=== PATIENT | female | born 1975 | race Caucasian/White ===

== ENCOUNTER 2025-01-14 01:10 | Inpatient (IN) | payer MEDICARE, OTHER ==
[~2025-01-14] VITALS: Ht 157.5 cm; Wt 51.7 kg
[2025-01-14 02:23] LABS: PLATELET COUNT (AUTO) 328 K/uL (150-450); RED BLOOD CELL COUNT(AUTO) 3.73 MIL/uL (4.00-5.20); RED CELL DISTRIBUTION WIDTH 18.4 % (11.5-14.5); WHITE BLOOD COUNT (AUTO) 4.2 K/uL (4.5-11.0)
[2025-01-14 02:35] LABS: CALCIUM, TOTAL 7.4 mg/dL (8.8-10.5); CREATININE 0.28 mg/dL (0.60-1.30); GLOMERULAR FILTR. RATE CALC > 60 mL/min (>60); GLUCOSE,RANDOM 96 mg/dL (70-110); SODIUM SERUM 143 mmol/L (136-145); UREA NITROGEN, BLOOD 13 mg/dL (7-18)
[2025-01-14 02:57] LABS: COVID AG,FIA SOURCE NASAL SWAB
[2025-01-14 03:24] LABS: SARS-COV2 (COVID) ANTIGEN,FIA Negative (Negative)
[2025-01-14 05:52] LABS: APPEARANCE,URINE CLEAR (CLEAR); GLUCOSE, URINE (UA) NEGATIVE (NEGATIVE); LEUKOCYTE ESTERASE ,URINE NEGATIVE (NEGATIVE); NITRATE,URINE NEGATIVE (NEGATIVE); OCCULT BLOOD,URINE NEGATIVE (NEGATIVE); PH,URINE DRUG SCREEN 6.5 (5.0-8.0); SPECIFIC GRAVITIY, URINE 1.028 (1.003-1.030)
[2025-01-14 05:59] LABS: ALCOHOL, URINE DRUG SCREEN NEGATIVE (NEGATIVE); AMPHET/METH SCREEN,URINE NEGATIVE (NEGATIVE); BARBITURATE SCREEN, URINE NEGATIVE (NEGATIVE); CANNABINOID SCREEN,URINE NEGATIVE (NEGATIVE); COCAINE SCREEN,URINE NEGATIVE (NEGATIVE); METHADONE SCREEN, URINE NEGATIVE (NEGATIVE)
[2025-01-14] MEDS ORDERED: PARO30TA60 PO (09:47)
[2025-01-14] MEDS ORDERED: LEVO25TA9 PO (09:47)
[2025-01-14] MEDS ORDERED: PYRI60TA PO (09:48)
[2025-01-14] MEDS: LEVOTHYROXINE SODIUM 25 MCG TABLET PO ONE (10:34)
[2025-01-14] MEDS: LEVOTHYROXINE SODIUM 25 MCG TABLET PO SCH (10:45)
[2025-01-14 14:15] VITALS: O2SAT 98
[2025-01-14] MEDS ORDERED: ZOLPIDEM TARTRATE 10 MG TABLET PO PRN (15:15)
[2025-01-14 20:15] VITALS: BP 131/87; PULSE 82; RESP 16; TEMP 98.5; O2SAT 98
[2025-01-15] MEDS: LEVOTHYROXINE SODIUM 25 MCG TABLET PO SCH (06:22)
[2025-01-15] MEDS ORDERED: MAGNESIUM HYDROXIDE SUSPENSION 30 ML UDCUP PO PRN (07:45)
[2025-01-15] MEDS ORDERED: OMEPRAZOLE 20 MG CAPSULE PO PRN (07:45)
[2025-01-15] MEDS ORDERED: ALBUTEROL SULFATE HFA 90 MCG/PUFF 8 GM INHALER IH PRN (07:45)
[2025-01-15] MEDS ORDERED: LOPERAMIDE HCL 2 MG CAPSULE PO PRN (07:45)
[2025-01-15] MEDS ORDERED: ONDANSETRON 4 MG TABLET PO PRN (07:45)
[2025-01-15] MEDS ORDERED: BACITRACIN 28 GM OINTMENT TP PRN (07:45)
[2025-01-15] MEDS ORDERED: MAG HYDROX/ALUMINUM HYD/SIMETH ES 30 ML SUSPENSION UDCUP PO PRN (07:45)
[2025-01-15] MEDS ORDERED: BENZOCAINE/MENTHOL [CEPACOL] LOZENGE PO PRN (07:45)
[2025-01-15] MEDS ORDERED: DOCUSATE SODIUM 100 MG CAPSULE PO PRN (07:45)
[2025-01-15] MEDS ORDERED: ACETAMINOPHEN 325 MG TABLET PO PRN (07:45)
[2025-01-15] MEDS ORDERED: IBUPROFEN 600 MG TABLET PO PRN (07:45)
[2025-01-15] MEDS ORDERED: PETROLATUM,WHITE 28 GM JELLY TP PRN (07:45)
[2025-01-15 08:05] VITALS: BP 130/87; PULSE 91; RESP 17; TEMP 97.2; O2SAT 98
[2025-01-15 08:13] LABS: ALCOHOL, BLOOD (SERUM) < 3 mg/dL (0-10)
[2025-01-15] MEDS: MULTIVITAMINS WITH MINERALS, THERAPEUTIC TABLET PO SCH (08:28)
[2025-01-15 08:35] LABS: CHOL/HDL RATIO 2.9 (3.9-5.7); HCG,QUANTITATIVE < 1 mIU/mL (0-6); LDL CHOL (CALC.) 99 mg/dL (0-130)
[2025-01-15 20:07] VITALS: BP 127/70; PULSE 76; RESP 18; TEMP 98.2; O2SAT 99
[2025-01-16 08:34] VITALS: BP 125/76; PULSE 88; RESP 17; TEMP 98.3; O2SAT 99
[2025-01-16] MEDS: LITHIUM CARBONATE 300 MG CAPSULE PO SCH (08:40)
[2025-01-16] MEDS: DIVALPROEX SODIUM 500 MG DR TABLET PO SCH (08:41)
[2025-01-16 20:56] VITALS: BP 127/82; PULSE 76; RESP 17; TEMP 98; O2SAT 100
[2025-01-17 08:39] VITALS: BP 117/83; PULSE 85; RESP 18; TEMP 98; O2SAT 98
[2025-01-17] MEDS ORDERED: LITH300C3 PO (08:49)
[2025-01-17] MEDS ORDERED: DIVA-112 PO (08:49)
== END 2025-01-17 14:14 | disposition home or self-care (01) | DRG 885 ==
LOC: EMS 01:13 → B2X 14:57
PROVIDERS: ADMIT Psychiatry & Neurology Psychiatry; ATTEND Psychiatry & Neurology Psychiatry
DX: F31.9 Bipolar disorder, unspecified (principal); R45.851 Suicidal ideations; G70.00 Myasthenia gravis without (acute) exacerbation; Z20.822 Contact with and (suspected) exposure to COVID-19; E03.9 Hypothyroidism, unspecified; F41.9 Anxiety disorder, unspecified; G47.00 Insomnia, unspecified; K59.00 Constipation, unspecified; F10.10 Alcohol abuse, uncomplicated; D64.9 Anemia, unspecified; Y90.0 Blood alcohol level of less than 20 mg/100 ml
CPT/HCPCS: 80048; 80061; 80307; 81003; 83036; 84436; 84443; 84702; 85025; 86592; 99285; G0480